=== PATIENT | female | born 1990 | race Caucasian/White ===

== ENCOUNTER 2022-01-17 01:15 | Emergency (ER) | payer OTHER, SELFPAY ==
[2022-01-17 01:16] VITALS: BP 117/70; PULSE 129; RESP 19; TEMP 36.3; O2SAT 98
[2022-01-17] MEDS: Ketorolac 30 MG/ML Syringe IV (02:36)
[2022-01-17] MEDS: Ondansetron 4 MG/2 ML Vial IV ×2 (02:37→04:06)
[2022-01-17] MEDS: 0.9% Normal Saline 1,000 ML 999 ML IV ×2 (02:38→04:17)
[2022-01-17 02:39] LABS: Absolute Neutrophil Count 11.6 X10^3/uL (2.0-7.7); Basophil# 0.02 X10^3/uL; Basophil% 0.2 % (0-1); Eosinophil# 0.02 X10^3/uL; Eosinophils% 0.2 % (0-5); Hematocrit 39.8 % (37-47); Hemoglobin 13.5 g/dL (12.0-15.0); Lymphocyte % 2.4 % (19-41); Mean Corp Hgb Conc 33.9 g/dL (32-36); Mean Corpuscular Hgb 30.2 pg (27.0-32.0); Mean Platelet Vol. 11.1 fl (6.2-12.0); Monocyte# 0.49 X10^3/uL; Monocyte% 3.9 % (0-10); NRBC Flagged by Analyzer 0 % (0-5); Neutrophil # 11.64 X10^3/uL (2.7-7.7); Neutrophil % 92.7 % (47-70); POSITIVE DIFFERENTIAL YES; Platelet Count 198 K/mm3 (150-450); RBC Distribution Width CV 12.5 % (11.6-14.6); RBC Distribution Width SD 41.1 fl (35.1-43.9); Red Blood Count 4.47 M/mm3 (4.2-5.4); White Blood Count 12.6 K/mm3 (4.4-11.0)
[2022-01-17 02:41] LABS: Differential Indicated SCAN CRITERIA MET
[2022-01-17 03:28] LABS: BUN 11 mg/dL (7-18); Creatinine, Serum 0.68 mg/dL (0.55-1.02); Glucose 132 mg/dL (74-106)
[2022-01-17 03:29] LABS: AST(SGOT) 12 U/L (15-37); Alanine Aminotransfer ALT/SGPT 13 U/L (13-56); Albumin, Serum 3.9 g/dL (3.2-5.0); Alkaline Phosphatase 41 U/L (45-117); Anion Gap 4 (5-15); BUN/Creat Ratio 16.1 RATIO (10-20); Bilirubin, Direct 0.26 mg/dL (0.00-0.30); Calcium,Total 8.8 mg/dL (8.5-10.1); Chloride 108 mmol/L (98-107); EST Glomerular Filtration Rate 104 mL/min (>60); Est Glom Filt Rate - Afr Amer 126 mL/min (>60); Globulin 3.2 g/dL (2.2-4.2); Lipase 64 U/L (73-393); Protein, Total 7.1 g/dL (6.4-8.2); Sodium Level 137 mmol/L (136-145)
[2022-01-17 03:33] LABS: Bacteria 0 SEEN /hpf (None Seen); Mucous, Urine 0 SEEN /hpf (<or=2+); Squamous Epithelial Cells - UA 0 SEEN /hpf (5-10); White Blood Cells 0 SEEN /hpf (0-5)
[2022-01-17 03:41] LABS: Color, Urine Yellow (Yellow); Glucose, Dipstick Normal (Normal); Nitrite-Dipstick Negative (Negative); Occult Blood-Urine Negative /ul (Negative); Urine Clarity Clear (Clear); Urine Urobilinogen Normal (Normal)
[2022-01-17 03:45] LABS: Ketone-Dipstick 50 mg/dl (Negative); Leukocyte Esterase-Dipstick Negative /ul (Negative); Protein-Dipstick 15 mg/dl (Negative); Urine Bilirubin Dipstick Negative (Negative)
[2022-01-17 03:49] LABS: Internal QC Validated? YES +Cl - CLEAR BKGD; Pregnancy, Urine Negative Negative
[2022-01-17 03:54] LABS: Red Blood Cells-Urine 0-5 SEEN /hpf (0-5)
--- NOTE | 2022-01-17 04:15 | EDS_ITS ---
HPI History of Present Illness Chief Complaint: Nausea/Vomiting/Diarrhea Narrative Narrative: Patient is a 32-year-old female who states she has had approximately 10 hours of generalized abdominal discomfort with bouts of nausea vomiting and diarrhea. She denies any known sick contacts and she denies any history of intestinal disorder. She states that she has been unable to keep food and fluid down and is feeling dehydrated and with concern for infection and dehydration presents for evaluation. PFSH PFSH Medical History no medical history no medical history Home Medications dicyclomine 20 mg PO 4X/DAY PRN PRN 7 Days #28 tab 01/17/22 [Rx Last Taken Unknown] ondansetron 4 mg PO TID PRN PRN 7 Days tab 01/17/22 [Rx Last Taken Unknown] Allergy/AdvReac Type Severity Reaction Status Date / Time Iodinated Contrast Media Allergy Intermediate Swelling Verified 01/17/22 01:19 [CONTRASTS] Penicillins Allergy Intermediate Swelling Verified 01/17/22 01:19 Social History Smoking Status: Former smoker ROS ROS ED Constitutional Constitutional ED: Denies chills or fever(s) ENT ENT ED: Denies sore throat Cardiovascular Cardiovascular: Denies chest pain Respiratory/Chest Respiratory/Chest: Denies cough or dyspnea Gastrointestinal Gastrointestinal: Reports abdominal pain, diarrhea, nausea and vomiting Genitourinary Genitourinary ED: Denies dysuria Musculoskeletal Musculoskeletal: Reports myalgias Integumentary Denies rash Neurologic Neurologic: Denies headache(s) Hematologic/Lymphatic Hematologic/Lymphatic: Denies easy bleeding or easy bruising EXAM Physical Exam Const Vital Signs: 01/17/22 01:16 Temperature 97.4 F L Temperature Source Temporal Pulse Rate 129 H Respiratory Rate 19 H Blood Pressure 117/70 Blood Pressure Mean 85 Pulse Ox 98 Oxygen Delivery Method Room Air Positive well nourished and well developed General Appearance ED: well developed HEENT Reports dry mucous membranes Mouth ED: Yes dry mucous membranes Mouth: dry mucous membranes Eyes PERRL and EOMs intact bilaterally Neck supple Resp normal respiratory effort and clear to auscultation bilaterally Cardio regular rhythm Rate: tachycardic GI non-distended GI Narrative: Abdomen is soft and nondistended with hyperactive bowel sounds. There is mild diffuse pain with palpation without voluntary guarding or rigidity. No pulsatile mass Palpation: soft Extremity normal to inspection Neuro oriented x3 and CN's II-XII intact bilaterally Sensorium / Orientation: alert Motor Exam: strength 5/5 throughout Psych mental status grossly normal Skin no rashes or lesions noted Skin Narrative: Skin turgor slightly increased MDM MDM MDM Narrative Medical decision making narrative: Patient presented to the ER tachycardic but otherwise afebrile with stable vital. Her abdominal exam is nonsurgical and therefore I felt no need for imaging studies. History and exam is most consistent with dehydration from a viral stomach infection. Therefore patient was given a total of 2 L of fluid and 2 rounds of Zofran. She had no further episodes of vomiting or diarrhea while in the ER. On reevaluation she is resting comfortably and abdomen remains soft and nonsurgical. Therefore at this time with improvement of symptoms and overall negative work-up I feel she is safe for discharge with symptomatic care Lab Data Attestation: I reviewed the patient's lab results. Labs: Laboratory Results - last 24 hr 01/17/22 01/17/22 01/17/22 01:21 01:21 03:27 WBC 12.6 H RBC 4.47 Hgb 13.5 Hct 39.8 MCV 89.0 MCH 30.2 MCHC 33.9 RDW Std Deviation 41.1 RDW Coeff of Arabella 12.5 Plt Count 198 MPV 11.1 Immature Gran % (Auto) 0.600 Neut % (Auto) 92.7 H Lymph % (Auto) 2.4 L Sharkey % (Auto) 3.9 Eos % (Auto) 0.2 Baso % (Auto) 0.2 Absolute Neuts (auto) 11.6 H Absolute Lymphs (auto) 0.30 L Nucleated RBC % 0 Sodium 137 Potassium 4.0 Chloride 108 H Carbon Dioxide 25.0 Anion Gap 4 L BUN 11 Creatinine 0.68 Estim Creat Clear Calc 97.50 Est GFR (MDRD) Af Amer 126 Est GFR (MDRD) Non-Af 104 BUN/Creatinine Ratio 16.1 Glucose 132 H Calcium 8.8 Total Bilirubin 1.20 H Direct Bilirubin 0.26 AST 12 L ALT 13 Alkaline Phosphatase 41 L Total Protein 7.1 Albumin 3.9 Globulin 3.2 Lipase 64 L Urine Color Yellow Urine Clarity Clear Urine pH 8.0 Ur Specific [place] 1.010 Urine Protein 15 H Urine Glucose (UA) Normal Urine Ketones 50 H Urine Occult Blood Negative Urine Nitrite Negative Urine Bilirubin Negative Urine Urobilinogen Normal Ur Leukocyte Esterase Negative Urine RBC 0-5 SEEN Urine WBC 0 SEEN Ur Squamous Epith Cells 0 SEEN Urine Bacteria 0 SEEN Urine Mucus 0 SEEN Urine Test Negative Discharge Plan Triage Chief Complaint: Nausea/Vomiting/Diarrhea ED Provider: Miguel Dang Dx/Rx/DC Orders Clinical Impression: Nausea vomiting and diarrhea, Dehydration Instructions: ED Gastroenteritis, Viral (Adult) Prescriptions: New ondansetron 4 mg tablet,disintegrating 4 mg PO TID PRN PRN (Reason: nausea and vomiting) 7 Days RF: 0 dicyclomine 20 mg tablet 20 mg PO 4X/DAY PRN PRN (Reason: Abdominal pain/spasm) 7 Days Qty: 28 RF: 0 Primary Care Provider: Care Physician,No Primary Referrals: Maikel Moe MD [STAFF PHYSICIAN] - 5-7 Days Care Physician,No Primary [Primary Care Provider] - Disposition Disposition: Home, Self Care
[2022-01-17 04:18] VITALS: O2SAT 98
== END 2022-01-17 23:59 | disposition home or self-care (01) ==
PROVIDERS: Emergency Provider Emergency Medicine; Visit Provider Emergency Medicine
DX: R11.2 Nausea with vomiting, unspecified (principal); R19.7 Diarrhea, unspecified; Z87.891 Personal history of nicotine dependence; E86.0 Dehydration
CPT/HCPCS: 80048; 80076; 81001; 81025; 83690; 85025; 96361; 96374; 96375; 96376; 99283; J2405

== ENCOUNTER → 2025-06-24 | Outpatient (CLI) | payer OTHER, SELFPAY ==
--- NOTE | 2025-06-24 09:37 | MRI_ITS ---
PROCEDURE: LOWER EXT JOINT ONLY (ROUTINE) 06/24/2025 REASON FOR EXAM: ACUTE INJURY, INTERNAL DERANGEMENT TECHNIQUE: MRI of the left knee without contrast was performed LOWER EXT JOINT ONLY (ROUTINE) Multiplanar and multisequence images were obtained without IV contrast administration. COMPARISON: COMPARISON: Left knee series of 06/23/2025. FINDINGS: Bone Marrow: Significant bone bruising versus nonvisualized/nondisplaced fracture of the medial portions of the posterior tibial plateau. No significant articular cartilage thinning or defect is noted. No surfacing meniscal tear is seen. Effusion: No significant joint effusion is noted. No Ledesma's or popliteal cyst is noted. Ligaments and Tendons: Partial tear of the distal patellar tendon, with adjacent edema and fluid collections. The visualized portions of the quadriceps tendon appear intact. Cruciate and collateral ligaments appear intact. MRI/Lower Ext Joint Only (Routine) IMPRESSION: 1. Significant bone bruising versus nonvisualized/nondisplaced fracture of the medial portions of the posterior tibial plateau. 2. Partial tear of the distal patellar tendon, with adjacent edema and fluid co llections. Reading Location: [place] [id number]
== END | disposition home or self-care (01) ==
PROVIDERS: Referring Provider Nurse Practitioner Family; Visit Provider Nurse Practitioner Family
DX: M23.92 Unspecified internal derangement of left knee (principal)
CPT/HCPCS: 73721